=== PATIENT | female | born 1935 | race Caucasian/White ===

== ENCOUNTER 2016-11-25 04:50 | Inpatient (IN) | payer MEDICARE, BC ==
--- NOTE | ~2016-11-25 | EKG ---
PATIENT: TAMEKA CRUZ UNIT #: [id number] Ventricular Rate: 82 BPM Atrial Rate: 108 BPM QRS Duration: 144 ms Q-T Interval: 376 ms QTC Calculation(Bezet): 439 ms Calculated R [place]: -48 degrees Calculated T [place]: 115 degrees Diagnosis Line: Atrial fibrillation Diagnosis Line: Left axis deviation Diagnosis Line: Left bundle branch block with repolarization Diagnosis Line: abnormality Diagnosis Line: Abnormal ECG Diagnosis Line: No previous ECGs available Diagnosis Line: Confirmed by ROMANA CAPUTO MD ([id number]) on 11/26/2016 Diagnosis Line: 9:14:09 PM INTERPRETING MD: HARSHAL OFRMAN
--- NOTE | ~2016-11-25 | HP ---
Unit #: [id number] #: [id number] Patient: TAMEKA CRUZ [id number] [address] [place], [place] [address] [id number] I MR#: [id number] NAME: TAMEKA CRUZ ROOM: 460 Age: 81 Sex: F Admission Date: 11/25/2016 : 1935 Attending Physician: Fang Alvarado M.D. Primary Care Physician: Lesli Tran A.P.R.N. HISTORY AND PHYSICAL CHIEF COMPLAINT Dizziness, right greater trochanter fracture. HISTORY This pleasant 81-year-old female with GERD, PAF, hypertension, was transferred from [facility] emergency department for dizziness and fracture of the right greater trochanter. The patient states that in the bathroom last evening she felt lightheaded. She was walking to the door, fell on her right side, and was unable to get up due to right hip pain. She was on the floor about 45 minutes before her son and grandson arrived home and helped her up. She was taken to [facility] emergency department where ultimately a CT scan performed showed a subtle hairline fracture of the right greater trochanter. She currently is unable to bear weight, and developed pain with any movement of the hip. She denies palpitations or chest pain with her above mentioned dizziness. Was last admitted to [facility] a month ago and will obtain records. PAST MEDICAL HISTORY 1. GERD. 2. History of stable CAD. 3. Paroxysmal atrial fibrillation, on Xarelto. 4. Hypertension. 5. Irritable bowel syndrome. 6. Appendectomy. 7. Hysterectomy. 8. Tonsillectomy. ALLERGIES Aspirin causes nausea only. MEDICATIONS Home medications are uncertain. [facility] sent a list that makes mention of aspirin, Bentyl, Lasix, nitroglycerin, Prilosec, Tylenol #3, Xanax, Imdur, lisinopril, metoprolol. Will obtain records from [facility] as patient was recently admitted there one month ago. FAMILY HISTORY CAD. SOCIAL HISTORY The patient lives with her son and grandson. She is a lifelong nonsmoker, does not drink alcohol. Unit #: [id number] #: [id number] Patient: TAMEKA CRUZ REVIEW OF SYSTEMS Notable for lightheadedness and fall with right hip pain, GERD, CAD, atrial fibrillation, hypertension, IBS, above mentioned surgeries. All other systems were reviewed and are otherwise negative. PHYSICAL EXAMINATION GENERAL APPEARANCE: Pleasant, moderately obese 81-year-old female who currently is in no acute distress. VITAL SIGNS: Vital signs prior to transfer - temperature 97.5, pulse 90, respirations 16, blood pressure 120/55. O2 saturation 99% on room air. HEENT: Eyes PERRLA. Extraocular muscles are intact. Pharynx is benign. NECK: Supple without adenopathy or thyromegaly. CHEST: Clear on patient's supine exam. CARDIAC: Irregular S1 and S2 without murmur. ABDOMEN: Bowel sounds are present. No hepatosplenomegaly, tenderness or masses. EXTREMITIES: Without edema. Pedal pulses are present. Movement of the right leg causes severe right hip pain. NEUROLOGIC EXAM: The patient is awake, alert, oriented. Cranial nerves are intact. She is able to move all of her extremities. DIAGNOSTIC STUDIES LABORATORY: Hematocrit 38.5, white blood count 12.4. SMA-12 - glucose 167, BUN 30, creatinine 1.6. No previous values for comparison. Magnesium level low at 1.2. Urinalysis - 5-10 white cells, 10-20 red cells, trace bacteria. IMAGING: Plain x-ray of the right hip suspicious for right greater trochanter fracture. CT scan, therefore, was performed showing a subtle hairline fracture of the right greater trochanter. ASSESSMENT 1. Fall after episode of lightheadedness with hairline fracture of the right greater trochanter. 2. Paroxysmal atrial fibrillation, on Xarelto. 3. Hypertension. 4. Irritable bowel syndrome. 5. History of coronary artery disease. 6. Possibly acute kidney injury versus chronic. 7. Leukocytosis which could be reactive. PLANS 1. Need home medication list. 2. Obtain EKG, repeat labs this morning. 3. IV fluids and supportive treatment with pain control. 4. Orthopedic surgeon to determine when patient can ambulate. 5. herbarium worker to see if patient may require short-term rehab. 6. Obtain records from [facility]. 7. Further workup depending on above. Unit #: [id number] #: [id number] Patient: TAMEKA CRUZ Dictated by Fang Alvarado M.D. AML/[place] TD: 11/25/2016 07:18 JOB #: [id number] HISTORY AND PHYSICAL Page 1 of 1 X Fang Alvarado MD HISTORY AND PHYSICAL
--- NOTE | ~2016-11-25 | EKG ---
PATIENT: TAMEKA CRUZ UNIT #: [id number] Ventricular Rate: 85 BPM Atrial Rate: 88 BPM QRS Duration: 150 ms Q-T Interval: 380 ms QTC Calculation(Bezet): 452 ms Calculated R [place]: -45 degrees Calculated T [place]: 124 degrees Diagnosis Line: Atrial fibrillation Diagnosis Line: Left axis deviation Diagnosis Line: Left bundle branch block with repolarization Diagnosis Line: abnormality Diagnosis Line: Abnormal ECG Diagnosis Line: When compared with ECG of 25-NOV-2016 05:14, Diagnosis Line: (unconfirmed) Diagnosis Line: No significant change was found Diagnosis Line: Confirmed by ROMANA CAPUTO MD ([id number]) on 11/26/2016 Diagnosis Line: 9:14:41 PM INTERPRETING MD: HARSHAL FORMAN
--- NOTE | ~2016-11-25 | CO ---
Unit #: [id number] #: [id number] Patient: TAMEKA DONOHUE [id number] [address] [address] [id number] I MR#: [id number] NAME: TAMEKA DONOHUE ROOM: 460 Age: 81 Sex: F Admission Date: 11/25/2016 : 1935 Attending Physician: Amelia Villatoro M.D. Primary Care Physician: Lesli Tran A.P.R.N. Consultation Date: 11/25/2016 CONSULTATION REPORT JOB NOTE: DICTATOR FOR NOT DICTATED REASON FOR CONSULTATION Right hip fracture. HISTORY OF PRESENT ILLNESS Ms. Donohue is a pleasant 81-year-old female, who presents today with a right hip fracture. The patient reports that she fell after having a dizzy spell in her bathroom late on the evening of 11/24/2016. She reports she landed on the right lower extremity. She has pain over the greater trochanter. She denies any groin pain. No radiation of pain. She reports difficulty weightbearing because of pain. There is no numbness, but positive weakness and instability. PAST MEDICAL HISTORY Significant for; 1. GERD. 2. Coronary artery disease. 3. Atrial fibrillation. 4. Hypertension. 5. IBS. MEDICATIONS Include , Bentyl, Lasix, nitroglycerin, Prilosec, Tylenol No.3, Xanax, Imdur, lisinopril, metoprolol. ALLERGIES FAMILY HISTORY Insignificant. SOCIAL HISTORY Significant for no smoking, no alcohol, no illicit drug use. PAST SURGICAL HISTORY Significant for appendectomy, hysterectomy, tonsillectomy. REVIEW OF SYSTEMS Ten organ systems reviewed. The patient denies any blurry vision, congestion, sore throat, shortness of breath, chest pain, abdominal pain, urinary incontinence, numbness, tingling, skin ulcers or lesions, anxiety, depression. Positive for joint pain. Unit #: [id number] #: [id number] Patient: TAMEKA DONOHUE PHYSICAL EXAMINATION GENERAL: No acute distress. Alert and oriented x3. VITAL SIGNS: Temperature 98.5, pulse 80, respirations 16, blood pressure 129/51. HEENT: PERRLA. Nonicteric sclerae. THORAX: Trachea midline. No thyromegaly. CARDIAC: S1, S2. No extra sounds or murmurs. LUNGS: Clear to auscultation. No rales or rhonchi. ABDOMEN: Nondistended, nontender, positive bowel sounds. : Deferred. MUSCULOSKELETAL: No erythema or ecchymosis. 2+ dorsalis pedis bilateral pulses. NEUROLOGIC: II through XII intact. SKIN: Cool and dry. PSYCH: Good insight and good judgment. Mood and affect are pleasant. DIAGNOSTIC STUDIES IMAGING STUDIES: X-rays of the right hip as well as a CT scan was ordered and reviewed and shows a positive nondisplaced right greater trochanteric hip fracture. No fractures of the femoral neck or intertrochanteric area is seen. ASSESSMENT Right greater trochanteric hip fracture. PLAN I discussed treatment options with the patient. No surgical intervention is warranted at this time. We will order physical therapy to see and evaluate the patient. She will be weightbearing as tolerated, but no abduction exercises are to be done. She will need another x-ray in about 10 days to 2 weeks. We will also consult Cardiology for her atrial fibrillation and "dizzy spell." Thank you for the consult. Dictated by... Gretchen DuncanAMaico for Eulalio Yancey M.D. BETY/balaji TD: 11/26/2016 02:27 JOB #: [id number] CONSULTATION REPORT Page 1 of 1 X Alaina Patterson CONSULTATION REPORT
--- NOTE | ~2016-11-25 | DS ---
Unit #: [id number] #: [id number] Patient: TAMEKA DONOHUE [id number] [address] [address] [id number] I MR#: [id number] NAME: TAMEKA DONOHUE ROOM: [facility] Age: 81 Sex: F Admission Date: 11/25/2016 : 1935 Discharge Date: 11/28/2016 Attending Physician: Amelia Villatoro M.D. Primary Care Physician: Lesli Tran A.P.R.N. DISCHARGE SUMMARY PRINCIPAL DIAGNOSES 1. Hairline fracture of right greater trochanter. 2. Orthostasis with subsequent fall. 3. Acute kidney injury on chronic kidney disease stage 3 with baseline creatinine of approximately 1.1. 4. Chronic atrial fibrillation, rate controlled and maintained on anticoagulation. 5. Chronic systolic congestive heart failure with ejection fraction of 35%. No acute exacerbation. 6. E-coli urinary tract infection. 7. Irritable bowel syndrome. 8. Hypertension. 9. Osteoporosis. 10. Coronary artery disease. 11. Gastroesophageal reflux disease. 12. Mild vitamin B12 deficiency with vitamin B12 level of 359. 13. Mild protein malnutrition. 14. Obesity. CONSULTANTS Dr. Yancey, orthopedic surgery. DIAGNOSTIC DATA IMAGING: CT scan of right hip revealing hairline fracture of the greater trochanter. CLINICAL HISTORY/HOSPITAL COURSE Ms. Donohue is a very nice 81-year-old female who presented to the emergency department with right hip pain after a fall at home. Fall was preceded by lightheadedness. Please refer to history and physical for further details. CT scan of the hip was done in the emergency department, revealing a hairline fracture of the greater trochanter. The patient was unable to bear weight and ambulate and thus was subsequently admitted. Dr. Yancey was consulted. At this time management is conservative only, i.e. pain control, and physical therapy. This fracture does diagnose the patient with osteoporosis and I have also placed her on calcium and vitamin D. In regard to the patient's lightheadedness, she is on several antihypertensives at home in addition to Lasix. Review of records from a recent hospitalization at another facility indicates she also presented there with acute kidney injury which was prerenal. I suspect she is getting some mild orthostasis secondary to her diuretics. Dose of Unit #: [id number] #: [id number] Patient: TAMEKA DONOHUE diuretics has been decreased and renal function improved from a creatinine of 1.4 upon admission down to 1.2. We will keep her on decreased dose of diuretics and she can take an extra dose p.r.n. for swelling or shortness of breath. In regard to the patient's atrial fibrillation, it remains rate controlled and she has been maintained on anticoagulation throughout hospitalization. She has had no chest pain. The patient's other chronic conditions remain stable. She will be discharged to rehab today. DISCHARGE CONDITION Stable. DISPOSITION Discharge to rehab. DISCHARGE MEDICATIONS 1. Xarelto 15 mg daily with dinner. 2. Bentyl 10 mg p.o. b.i.d. 3. Xanax 0.25 mg p.o. at bedtime p.r.n. anxiety or insomnia. 4. Digoxin 0.125 mg p.o. daily. 5. Cardizem CD 120 mg daily. 6. Metoprolol succinate 100 mg b.i.d. 7. Colace 100 mg b.i.d. 8. MiraLAX 17 g p.o. daily p.r.n. constipation. 9. Cephalexin 500 mg p.o. t.i.d., to stop after dose on 11/29/2016. 10. Lasix 20 mg daily. The patient may take an extra 20 mg p.o. daily p.r.n. lower extremity swelling or shortness of breath. 11. Cozaar 100 mg daily. 12. Melatonin 1 mg 1-2 tablets p.o. at bedtime p.r.n. insomnia. 13. Tylenol 3 1-2 tablets p.o. q.6 h. p.r.n. pain. 14. Pantoprazole 40 mg daily. 15. Os-Dennis 500 Plus D 1 tablet b.i.d. 16. Potassium chloride ER 10 mEq daily. 17. Flexeril 5 mg p.o. daily p.r.n. muscle pain. 18. Imdur ER 30 mg p.o. daily. 19. Nitroglycerin 0.4 mg sublingual q.5 minutes p.r.n. chest pain. 20. Vitamin B12 1000 mcg p.o. daily. DIET The patient was instructed to follow a heart healthy diet. ACTIVITY She can increase her activity as tolerate under the care of physical therapy and occupational therapy. She is weightbearing as tolerated with walker. She is to have no abduction of the right hip. FOLLOWUP 1. The patient will follow up with Dr. Yancey in approximately 10-14 days as an outpatient. 2. She will follow up with her primary care provider, Lesli Tran, upon discharge from rehab. Dictated by... Amelia Villatoro M.D. JOSEPH/rik Unit #: [id number] #: [id number] Patient: TAMEKA DONOHUE TD: 11/28/2016 08:44 JOB #: [id number] DISCHARGE SUMMARY Page 1 of 1 X Amelia Villatoro MD X DISCHARGE SUMMARY
[2016-11-25] MEDS ORDERED: ALPRAZOLAM0.25 MG PO (05:43)
[2016-11-25] MEDS ORDERED: FLEXERIL PO (05:44)
[2016-11-25] MEDS ORDERED: BENTYL10 MG PO (05:46)
[2016-11-25] MEDS ORDERED: DIGOX0.125 MG PO (05:47)
[2016-11-25] MEDS ORDERED: DILTIA XT120 MG PO (05:47)
[2016-11-25] MEDS ORDERED: LASIX20 MG PO (05:48)
[2016-11-25] MEDS ORDERED: IMDUR-ER60 M1 DOB (05:50)
[2016-11-25] MEDS ORDERED: COZAAR100 MG PO (05:51)
[2016-11-25] MEDS ORDERED: MELATONIN1 MG PO (05:52)
[2016-11-25] MEDS ORDERED: METOPROLOL SUC100 MG PO (05:53)
[2016-11-25] MEDS ORDERED: NITROGLYCERIN0.4 MG SL (05:54)
[2016-11-25] MEDS ORDERED: PANTOPRAZOLE SO40 MG PO (05:54)
[2016-11-25] MEDS ORDERED: POTASSIUM CHLO10 MEQ PO (05:55)
[2016-11-25] MEDS ORDERED: XARELTO15 MG PO (05:56)
[2016-11-25 08:47] LABS: BASOPHIL# 0.1 X10e3 (0-0.3); BASOPHIL% 0.7 % (0-2.5); EOSINOPHIL# 0.1 X10e3 (0-0.7); EOSINOPHIL% 1.1 % (0.0-7.0); HEMOGLOBIN 11.6 gm/dL (12.0-16.0); LYMPHOCYTE# 2.2 X10e3 (1.0-3.5); LYMPHOCYTE% 19.2 % (17.0-45.0); MEAN CELL VOLUME 96.7 FL (83-96); MEAN CORPUSCULAR HEMOGLOBIN 31.2 PG (28-34); MEAN CORPUSCULAR HGB CONC 32.2 g/dL (30-36); MONOCYTE# 0.8 X10e3 (0-1.0); MONOCYTE% 6.7 % (3.0-12.0); NEUTROPHIL# 8.2 X10e3 (1.5-7.1); NEUTROPHIL% 72.3 % (40-75); PLATELET COUNT 160 X10e3 (140-420); RED BLOOD COUNT 3.72 X10e (3.90-5.30); RED CELL DISTRIBUTION WIDTH 14.5 % (11.0-15.5); WHITE BLOOD COUNT 11.4 X10e3 (4.0-10.5)
[2016-11-25 08:58] LABS: DIFF IND NO
[2016-11-25 09:28] LABS: BILIRUBIN,TOTAL 0.8 mg/dL (0.2-2.0); CALCIUM SERUM 8.8 mg/dL (8.4-10.2); CREATININE SERUM 1.4 mg/dL (0.6-1.4); GLOM FILT RATE Estimated 35.4 mL/min (>60); POTASSIUM 4.2 mmol/L (3.5-5.1); PROTEIN TOTAL SERUM 5.9 g/dL (6.0-8.3)
[2016-11-25 15:06] LABS: URINE SOURCE CLEAN CATCH
[2016-11-25 15:11] LABS: URINE APPEARANCE CLOUDY; URINE BILIRUBIN NEG (NEG); URINE BLOOD 2+ (NEG); URINE COLOR YELLOW; URINE GLUCOSE NEG (NEG); URINE KETONE NEG (NEG); URINE LEUKOCYTE ESTERASE 2+ (NEG); URINE NITRATE NEG (NEG); URINE PROTEIN NEG (NEG); URINE SPECIFIC GRAVITY 1.017 (1.003-1.035); URINE UROBILINOGEN 0.2 MG/DL (NEG)
[2016-11-25 15:14] LABS: CULTURE INDICATED? YES; URINE BACTERIA AUWI NEG (NEGATIVE)
[2016-11-25 15:26] LABS: URINE SQUAMOUS EPITHELIAL CELL FEW /[HPF]
[2016-11-26 03:24] LABS: BASOPHIL# 0.1 X10e3 (0-0.3); DIFF IND NO; EOSINOPHIL# 0.3 X10e3 (0-0.7); EOSINOPHIL% 2.1 % (0.0-7.0); HEMATOCRIT 37.7 % (35.0-45.0); HEMOGLOBIN 12.2 gm/dL (12.0-16.0); LYMPHOCYTE# 2.7 X10e3 (1.0-3.5); LYMPHOCYTE% 21.7 % (17.0-45.0); MEAN CELL VOLUME 96.7 FL (83-96); MEAN CORPUSCULAR HEMOGLOBIN 31.2 PG (28-34); MEAN CORPUSCULAR HGB CONC 32.3 g/dL (30-36); MEAN PLATELET VOLUME 9.8 FL (6.5-11.5); MONOCYTE# 0.7 X10e3 (0-1.0); MONOCYTE% 5.5 % (3.0-12.0); NEUTROPHIL# 8.8 X10e3 (1.5-7.1); NEUTROPHIL% 69.7 % (40-75); PLATELET COUNT 161 X10e3 (140-420); RED CELL DISTRIBUTION WIDTH 14.8 % (11.0-15.5); WHITE BLOOD COUNT 12.6 X10e3 (4.0-10.5)
[2016-11-26 03:46] LABS: CALCIUM SERUM 8.8 mg/dL (8.4-10.2); CREATININE SERUM 1.2 mg/dL (0.6-1.4); GLOM FILT RATE Estimated 42.7 mL/min (>60); MAGNESIUM 1.6 mg/dL (1.6-3.0); POTASSIUM 4.5 mmol/L (3.5-5.1)
== END 2016-11-28 15:00 | DRG 536 ==
LOC: C4B 04:50
PROVIDERS: Internal Medicine
DX: S72.111A Displaced fracture of greater trochanter of right femur, initial encounter for closed fracture (principal); N17.9 Acute kidney failure, unspecified; I13.0 Hypertensive heart and chronic kidney disease with heart failure and stage 1 through stage 4 chronic kidney disease, or unspecified chronic kidney disease; I50.22 Chronic systolic (congestive) heart failure; N39.0 Urinary tract infection, site not specified; E44.1 Mild protein-calorie malnutrition; I48.2 Chronic atrial fibrillation; W01.0XXA Fall on same level from slipping, tripping and stumbling without subsequent striking against object, initial encounter; Y92.012 Bathroom of single-family (private) house as the place of occurrence of the external cause; K21.9 Gastro-esophageal reflux disease without esophagitis; I25.10 Atherosclerotic heart disease of native coronary artery without angina pectoris; N18.3 Chronic kidney disease, stage 3 (moderate); K58.9 Irritable bowel syndrome, unspecified; Z90.710 Acquired absence of both cervix and uterus; Z90.49 Acquired absence of other specified parts of digestive tract; B96.20 Unspecified Escherichia coli [E. coli] as the cause of diseases classified elsewhere; M81.0 Age-related osteoporosis without current pathological fracture; E53.8 Deficiency of other specified B group vitamins; Z79.82 Long term (current) use of aspirin
CPT/HCPCS: 80048; 80053; 80162; 81003; 82550; 82607; 83735; 84443; 84484; 85025; 87086; 87088; 87186; 93005; 97116; 97162; 97530; 97535; G8978-GP; G8979-GP; J2270; J2405